=== PATIENT | female | born 1930 | race Caucasian/White ===

== ENCOUNTER 2017-12-31 10:32 | Emergency (ER) | payer OTHER ==
[~2017-12-31] VITALS: Ht 157.5 cm; Wt 31.8 kg
[~2017-12-31 10:32] MED LIST: LABE100T15 PO; OXYB1PAT
--- NOTE | 2017-12-31 10:37 | NUR ---
LEFT SIDE RIB CAGE PAIN x 2 DAYS.
[2017-12-31 11:07] LABS: APPEARANCE,URINE Slightly Cloudy (CLEAR); BILIRUBIN,URINE Negative (NEGATIVE); BLOOD, URINE Small Ery/uL (NEGATIVE); COLOR,URINE Yellow (YELLOW); KETONES,URINE Trace (NEGATIVE); LEUKOCYTE ESTERASE ,URINE Small (NEGATIVE); NITRITE, URINE Negative (NEGATIVE); PROTEIN,URINE Trace mg/dl (NEGATIVE); UGLUCOSE Negative (NEGATIVE); UROBILINOGEN,URINE 0.2 EU/dL (0.2)
[2017-12-31 11:20] LABS: BACTERIA,URINE 1+ /HPF (None Seen); SQUAMOUS EPITHELIAL CELL,UR Few /HPF (None Seen)
[2017-12-31] MEDS ORDERED: OXYB5TAB11 PO (11:24)
[2017-12-31] MEDS ORDERED: DORZ10DR11 EACHEYE (11:24)
[2017-12-31] MEDS ORDERED: LATA2.5D7 LEFTEYE (11:24)
[2017-12-31] MEDS ORDERED: BRIM5DRO RIGHTEYE (11:24)
--- NOTE | 2017-12-31 11:41 | NUR ---
Patient discharged to home in stable condition. Written and verbal after care instructions given. Patient verbalizes understanding of instruction.
[2017-12-31 11:43] VITALS: BP 130/72
== END 2017-12-31 11:43 | disposition home or self-care (01) ==
LOC: ER 10:35
DX: M25.552 Pain in left hip (principal); H40.9 Unspecified glaucoma; I10 Essential (primary) hypertension
CPT/HCPCS: 72170; 81001; 87086; 99285; A4606; 81000-TC; Z7610

== ENCOUNTER 2019-09-13 20:11 | Emergency (ER) | payer OTHER ==
[~2019-09-13] VITALS: Ht 157.5 cm; Wt 35.4 kg
[~2019-09-13 20:11] MED LIST changes: +BRIM5DRO RIGHTEYE; +DORZ10DR11 EACHEYE; +LATA2.5D7 LEFTEYE; -OXYB1PAT; +OXYB5TAB16 PO
--- NOTE | 2019-09-13 20:28 | NUR ---
PT AAOX4. PT C/O LEFT FOREARM HEMATOMA SINCE 19:30. PT DENIES TRAUMA. NO NEURO DEFICIT. PT ABLE TO EXTEND L ARM. RR EVEN AND UNLABORED. NO ACUTE DISTRESS NOTED. AWAITING MD FOR EVAL
[2019-09-13 21:12] VITALS: BP 165/73
== END 2019-09-13 21:54 | disposition home or self-care (01) ==
LOC: ER 20:13
DX: S50.12XA Contusion of left forearm, initial encounter (principal); I10 Essential (primary) hypertension; Z79.899 Other long term (current) drug therapy; X58.XXXA Exposure to other specified factors, initial encounter; Y93.89 Activity, other specified; Y92.89 Other specified places as the place of occurrence of the external cause; Y99.8 Other external cause status

== ENCOUNTER 2020-11-06 12:51 | Emergency (ER) | payer OTHER ==
[~2020-11-06] VITALS: Ht 157.5 cm; Wt 35.4 kg
[~2020-11-06 12:51] MED LIST changes: +LATA2.5D15 LEFTEYE; -LATA2.5D7 LEFTEYE
--- NOTE | 2020-11-06 13:30 | NUR ---
LAURENT FOR ABD PAIN SINCE YESTERDAY. DENIES N/V/D AT THIS TIME. PT SEEN & EVAL'D BY DR. HYATT. 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 WILL CONT TO MONITOR.
[2020-11-06 13:56] LABS: BASOPHILS % (AUTO) 1.1 % (0.0-2.0); EOSINOPHILS % (AUTO) 9.8 % (0.0-6.0); HEMATOCRIT 37 % (33-45); HEMOGLOBIN 12.4 g/dL (11.5-14.8); LYMPHOCYTES # (AUTO) 1.1 /CMM (0.8-4.8); LYMPHOCYTES % (AUTO) 27.6 % (20.0-44.0); MEAN CORPUSCULAR HGB CONC 33 g/dl (31.0-36.0); MEAN CORPUSCULAR VOLUME 94 fL (82-100); MONOCYTES # (AUTO) 0.4 /CMM (0.1-1.30); MONOCYTES % (AUTO) 10.2 % (2.0-12.0); NEUTROPHILS % (AUTO) 51.3 % (43.0-81.0); PLATELET COUNT (AUTO) 181 /CMM (150-450); RED BLOOD CELL COUNT(AUTO) 3.97 MIL/uL (4.0-5.2)
[2020-11-06 14:03] LABS: CALCIUM, SERUM 9.8 mg/dL (8.5-10.1); CARBON DIOXIDE 32 mmol/L (21-32); CHLORIDE 99 mmol/L (98-107); CREATININE 1.1 mg/dL (0.6-1.3); GLUCOSE 112 mg/dL (74-106); POTASSIUM 3.9 mmol/L (3.5-5.1); SODIUM SERUM 137 mmol/L (136-145); UREA NITROGEN, BLOOD 21 mg/dL (7-18)
[2020-11-06 14:10] LABS: ALANINE AMINOTRANSFERASE 18 U/L (12-78); ALKALINE PHOSPHATASE 64 U/L (46-116); ASPARTATE AMINOTRANSFERASE 21 U/L (15-37); BILIRUBIN,DIRECT 0.1 mg/dL (0.0-0.2); BILIRUBIN,TOTAL 0.5 mg/dL (0.2-1.0); LIPASE 84 U/L (73-393); TOTAL PROTEIN, SERUM 8.2 g/dL (6.4-8.2)
[2020-11-06] MEDS ORDERED: OXYB10TA30 PO (14:19)
[2020-11-06] MEDS ORDERED: ACET325T53 PO (14:19)
[2020-11-06 14:38] LABS: BILIRUBIN,URINE Negative (NEGATIVE); COLOR,URINE YELLOW (YELLOW); LEUKOCYTE ESTERASE ,URINE Negative (NEGATIVE); NITRITE, URINE Negative (NEGATIVE); PH,URINE 6.5 (5.0-8.0); PROTEIN,URINE Negative (NEGATIVE); UGLUCOSE Negative (NEGATIVE); UROBILINOGEN,URINE 0.2 EU/dL (0.2)
[2020-11-06 14:39] LABS: BACTERIA,URINE Few /HPF (None Seen); SQUAMOUS EPITHELIAL CELL,UR Few /HPF (None Seen); WBC,URINE 0-2 /HPF (0-3)
[2020-11-06] MEDS ORDERED: POLY17PO4 PO (15:46)
--- NOTE | 2020-11-06 16:16 | NUR ---
Patient discharged to home in stable condition. Written and verbal after care instructions given. Patient verbalizes understanding of instruction.IV removed. Catheter intact and site benign. Pressure and 4x4 applied to site. No bleeding noted.
[2020-11-06 16:17] VITALS: BP 142/87
== END 2020-11-06 16:17 | disposition home or self-care (01) ==
LOC: ER 13:03
DX: R10.31 Right lower quadrant pain (principal); K59.00 Constipation, unspecified; N13.30 Unspecified hydronephrosis; M48.56XA Collapsed vertebra, not elsewhere classified, lumbar region, initial encounter for fracture; I10 Essential (primary) hypertension; Z79.899 Other long term (current) drug therapy
CPT/HCPCS: 36415; 71045-TC; 80048-TC; 80076-TC; 81001; 83690-TC; 84484-TC; 85025-TC

== ENCOUNTER 2021-07-31 11:04 | Emergency (ER) | payer OTHER ==
[~2021-07-31] VITALS: Ht 157.5 cm; Wt 34.0 kg
[~2021-07-31 11:04] MED LIST changes: +ACET325T53 PO; +OXYB10TA30 PO; -OXYB5TAB16 PO; +POLY17PO4 PO
--- NOTE | 2021-07-31 11:31 | NUR ---
DR LUCERO AT BEDSIDE FOR EVAL.
--- NOTE | 2021-07-31 12:40 | NUR ---
US AT BEDSIDE
[2021-07-31 13:43] VITALS: BP 148/72
--- NOTE | 2021-07-31 13:43 | NUR ---
Patient discharged to home in stable condition. Written and verbal after care instructions given. Patient verbalizes understanding of instruction.
== END 2021-07-31 13:44 | disposition home or self-care (01) ==
LOC: ER 11:10
DX: M79.621 Pain in right upper arm (principal); G47.53 Recurrent isolated sleep paralysis; I10 Essential (primary) hypertension; Z79.899 Other long term (current) drug therapy
CPT/HCPCS: 73060-TC; 93971-TC